=== PATIENT | female | born 1980 | race American Indian/Alaskan Native ===

== ENCOUNTER 2019-06-04 19:19 | Emergency (ER) | payer SELFPAY ==
[2019-06-04 21:08] VITALS: BP 131/79
[2019-06-04 21:31] LABS: Basophils # (Auto) 0.1 K/mm3 (0.0-0.1); Basophils % (Auto) 0.9 % (0.0-1.8); Eosinophils # (Auto) 0.2 K/mm3 (0.0-0.4); Eosinophils % (Auto) 1.8 % (0.0-4.3); Hematocrit 37.6 % (30.3-42.9); Hemoglobin 12.1 gm/dl (10.1-14.3); Lymphocytes # (Auto) 3.9 K/mm3 (1.2-5.4); Lymphocytes % (Auto) 33.7 % (13.4-35.0); Mean Corpuscular HGB Conc 32 % (30-34); Mean Corpuscular Volume 84 fl (79-97); Monocytes # (Auto) 1.1 K/mm3 (0.0-0.8); Monocytes % (Auto) 9.2 % (0.0-7.3); Platelet Count 335 K/mm3 (140-440); Red Blood Count 4.51 M/mm3 (3.65-5.03); Red Cell Distribution Width 13.7 % (13.2-15.2)
--- NOTE | 2019-06-04 21:34 | Emergency Department Report ---
ED Female HPI - General Chief complaint: Abdominal Pain Stated complaint: 8 WEEKS ABDOMINAL PAIN Time Seen by Provider: 06/04/19 21:06 Source: patient Mode of arrival: Ambulatory Limitations: No Limitations - History of Present Illness Initial comments: 38-year-old female with no significant past medical history presents to the ER today complaining of vaginal bleeding. Patient states that she started spotting intermittently this past Tuesday. She reports associated intermittent lower abdominal cramping. Patient states that she is currently about 5 weeks based on last menstrual cycle which was 04/26/2019. She is G3, P0, AB0. She denies any associated abnormal vaginal discharge, UTI symptoms, fever, chills or any other symptoms at this time. MD Complaint: vaginal bleeding, other () -: Sudden (tuesday) - Related Data Allergies Allergy/AdvReac Type Severity Reaction Status Date / Time No Known Allergies Allergy Unverified 06/04/19 21:07 ED Review of Systems ROS: Stated complaint: 8 WEEKS ABDOMINAL PAIN Other details as noted in HPI Comment: All other systems reviewed and negative Constitutional: denies: chills, fever Gastrointestinal: abdominal pain. denies: nausea, vomiting, diarrhea, constipation Genitourinary: other (abnormal vaginal bleeding). denies: urgency, dysuria, frequency, hematuria, discharge, abnormal menses Neurological: denies: headache, weakness, numbness, paresthesias, confusion, abnormal gait Hematological/Lymphatic: denies: easy bleeding ED Past Medical Hx - Past Medical History Previous Medical History?: No - Surgical History Past Surgical History?: Yes Hx Cholecystectomy: Yes - Social History Smoking Status: Never Smoker Substance Use Type: None ED Physical Exam - General Limitations: No Limitations General appearance: alert, in no apparent distress - Head Head exam: Present: atraumatic, normocephalic, normal inspection - Eye Eye exam: Present: normal appearance, PERRL, EOMI Pupils: Present: normal accommodation - Respiratory Respiratory exam: Present: normal lung sounds bilaterally - Cardiovascular Cardiovascular Exam: Present: regular rate, normal rhythm, normal heart sounds - GI/Abdominal GI/Abdominal exam: Present: soft. Absent: distended, tenderness - Neurological Exam Neurological exam: Present: alert, oriented X3, CN II-XII intact, normal gait. Absent: motor sensory deficit - Skin Skin exam: Present: intact ED Course Vital Signs 06/04/19 21:05 Temperature 98.7 F Pulse Rate 87 Respiratory 18 Rate Blood Pressure 131/79 O2 Sat by Pulse 100 Oximetry ED Medical Decision Making - Lab Data Result diagrams: 06/04/19 21:14 - Radiology Data Radiology results: report reviewed Patient: DHARMESH BARGER MR#: [id number] : 1980 Acct:[id number] Age/Sex: 38 / F ADM Date: 06/04/19 Loc: ED Attending Dr: Ordering Physician: NINO OCHOA Date of Service: 06/04/19 Procedure(s): US OB transvaginal Accession Number(s): [id number] cc: NINO OCHOA US OB transvaginal, US OB <= 14 weeks fetus INDICATION / CLINICAL INFORMATION: pregant and vaginal bleeding. COMPARISON: None available. FINDINGS: Transabdominal and transvaginal imaging was performed. There is an intrauterine gestational sac with yolk sac. No pole is identified. Gestational sac mean diameter is 16.3 mm, 6 weeks, 3 days. Somewhat focal heterogeneity in the central uterus adjacent to the gestational sac may be a very small subchorionic hemorrhage/implantation bleed. Ovaries are symmetric. Flow is seen to both ovaries. No adnexal lesions are seen. No free fluid. IMPRESSION: 1. Intrauterine gestational sac measures 6 weeks, 3 days. Yolk sac is visualized; however, no pole is identified. Correlation with serial beta hCG levels and short-term sonographic follow-up is recommended. 2. Probable very small subchorionic bleed adjacent to the gestational sac. 3. No adnexal lesions or free fluid seen. Signer Name: Kamari Garduno MD Signed: 06/04/2019 11:15 PM Workstation Name: [id number] Transcribed By: SW Dictated By: Kamari Garduno MD Electronically Authenticated By: Kamari Garduno MD Signed Date/Time: 06/04/192314 DD/ 10 TD/TT: Critical care attestation.: If time is entered above; I have spent that time in minutes in the direct care of this critically ill patient, excluding procedure time. ED Disposition Clinical Impression: Threatened Disposition: DC-01 TO HOME OR SELFCARE Is pt being admited?: No Does the pt Need Aspirin: No Condition: Stable Instructions: Threatened Miscarriage (ED) Additional Instructions: Follow up with you OBGYN Kalie Estes for repeat monitoring of your quantitative HCG and repeat US. Return to ED if worse. Referrals: JENNIFER ANGELES [Other] - 3-5 Days Time of Disposition: 23:30
[2019-06-04 21:41] LABS: Bilirubin,Urine NEG (Negative); Blood,Urine SM (Negative); Color,Urine Yellow (Yellow); Mucus,Urine FEW /HPF; Protein,Urine <15 mg/dL mg/dL (Negative); Urobilinogen,Urine < 2.0 mg/dL (<2.0); WBC,Urine < 1.0 /HPF (0.0-6.0)
--- NOTE | 2019-06-04 23:19 | Ultrasound Report ---
US OB transvaginal, US OB <= 14 weeks fetus INDICATION / CLINICAL INFORMATION: pregant and vaginal bleeding. COMPARISON: None available. FINDINGS: Transabdominal and transvaginal imaging was performed. There is an intrauterine gestational sac with yolk sac. No pole is identified. Gestational sac mean diameter is 16.3 mm, 6 weeks, 3 days. Somewhat focal heterogeneity in the central uterus adjacen t to the gestational sac may be a very small subchorionic hemorrhage/implantation bleed. Ovaries are symmetric. Flow is seen to both ovaries. No adnexal lesions are seen. No free fluid. IMPRESSION: 1. Intrauterine gestational sac measures 6 weeks, 3 days. Yolk sac is visualized; however, no p ole is identified. Correlation with serial beta hCG levels and short-term sonographic follow-up is re commended. 2. Probable very small subchorionic bleed adjacent to the gestational sac. 3. No adnexal lesions or free fluid seen. Signer Name: Kamari Garduno MD Signed: 06/04/2019 11:15 PM Workstation Name: [id number]
== END 2019-06-04 23:40 | disposition home or self-care (01) ==
LOC: ED 19:19
DX: O20.0 Threatened abortion (principal); Z90.49 Acquired absence of other specified parts of digestive tract; Z3A.01 Less than 8 weeks gestation of pregnancy
CPT/HCPCS: 36415; 76801; 76817; 81001; 84702; 85025; 86900; 86901